=== PATIENT | female | born 1995 | race African-American/Black ===

== ENCOUNTER 2018-02-02 20:57 | Emergency (ER) | payer OTHER ==
[2018-02-02] MEDS ORDERED: IBUPROFEN 600 MG TABLET (FP) PO ONE ×2 (21:09→21:51)
[2018-02-02] MEDS ORDERED: ALBUTEROL SO4 2.5/IPRATROPIUM 0.5 INH SOL 3 ML VIAL.NEB. NEB ONE ×2 (21:10→21:51)
--- NOTE | 2018-02-02 21:13 | PDOC ---
Rapid Medical Evaluation Chief Complaint: Respiratory Time Seen by Provider: 02/02/18 21:06 Medical Evaluation: 02/02/18 21:07 22 year old female cough, chest pain and throat pain with fever x 2 days. PE: patient alert ox3, + moist cough. coarse breath sounds with occasional end expiratory wheeze A: cough, fever P: rapid strep urine chest pa and lateral fever control 02/02/18 21:13 02/02/18 21:13
[2018-02-02 21:22] VITALS: BMI 39.1
--- NOTE | 2018-02-02 21:50 | PDOC ---
History of Present Illness - General Chief Complaint: Cold Symptoms Stated Complaint: COUGHING/FEVER Time Seen by Provider: 02/02/18 21:06 - History of Present Illness Initial Comments: 22-year-old healthy female without any significant past medical history presents for evaluation of sore throat cough and fever 3 days. 02/02/18 21:48 Past History - Past Medical History Allergies/Adverse Reactions: Allergies Allergy/AdvReac Type Severity Reaction Status Date / Time No Known Allergies Allergy Verified 02/02/18 21:13 - Suicide/Smoking/Psychosocial Hx Smoking History: Never smoked Have you smoked in the past 12 months: No Information on smoking cessation initiated: No Hx Alcohol Use: No Drug/Substance Use Hx: No Review of Systems - Review of Systems Comments:: GENERAL/CONSTITUTIONAL: + fever or chills. No weakness. No weight change. HEAD, EYES, EARS, NOSE AND THROAT: No change in vision. No ear pain or discharge. + sore throat. CARDIOVASCULAR: No chest pain or shortness of breath. RESPIRATORY: + cough, wheezing, no hemoptysis. GASTROINTESTINAL: No nausea, vomiting, diarrhea or constipation. No rectal bleeding. GENITOURINARY: No dysuria, frequency, or change in urination. MUSCULOSKELETAL: No joint or muscle swelling or pain. No neck or back pain. SKIN AND BREASTS: No rash or easy bruising. NEUROLOGIC: No headache, vertigo, loss of consciousness, or loss of sensation. PSYCHIATRIC: No depression or anxiety. ENDOCRINE: No increased thirst. No abnormal weight change. HEMATOLOGIC/LYMPHATIC: No anemia, easy bleeding, or history of blood clots. ALLERGIC/IMMUNOLOGIC: No hives or skin allergy. No latex allergy. 02/02/18 21:48 *Physical Exam - Vital Signs Last Vital Signs Temp Pulse Resp BP Pulse Ox 101.7 F H 92 H 16 123/80 98 02/02/18 21:08 02/02/18 21:08 02/02/18 21:08 02/02/18 21:08 02/02/18 21:08 - Physical Exam Comments: GENERAL: The patient is awake, alert, and fully oriented, in no acute distress. HEAD: Normal with no signs of trauma. EYES: Pupils equal, round and reactive to light, extraocular movements intact, sclera anicteric, conjunctiva clear. ENT: Ears normal, nares patent, oropharynx clear with mild injection. Moist mucous membranes. NECK: Normal range of motion, supple without lymphadenopathy, JVD, or masses. LUNGS: R sided ronchi and expiratory wheezing HEART: Regular rate and rhythm, normal S1 and S2 without murmur, rub or gallop. ABDOMEN: Soft, nontender, normoactive bowel sounds. No guarding, no rebound. No masses. EXTREMITIES: Normal range of motion, no edema. No clubbing or cyanosis. No cords, erythema, or tenderness. NEUROLOGICAL: Cranial nerves II through XII grossly intact. Normal speech, normal gait. PSYCH: Normal mood, normal affect. SKIN: Warm, Dry, normal turgor, no rashes or lesions noted. 02/02/18 21:49
[2018-02-02] MEDS: ALBUTEROL SO4 2.5/IPRATROPIUM 0.5 INH SOL 3 ML VIAL.NEB. NEB SCH ×4 (21:54→22:53)
[2018-02-02] MEDS ORDERED: DEXAMETHASONE LIQUID 0.5 MG/5 ML 240 ML BULK BOTTLE PO ONE (22:44)
[2018-02-02] MEDS ORDERED: DEXAMETHASONE SOD PHOSPHATE 10 MG/1 ML VIAL ONE (22:47)
--- NOTE | 2018-02-02 23:05 | PDOC ---
*Physical Exam - Vital Signs Last Vital Signs Temp Pulse Resp BP Pulse Ox 101.7 F H 92 H 16 123/80 98 02/02/18 21:08 02/02/18 21:08 02/02/18 21:08 02/02/18 21:08 02/02/18 21:08 - Physical Exam General Appearance: Yes: Appropriately Dressed Respiratory/Chest: positive: Decreased Breath Sounds, Wheezing Cardiovascular: positive: Tachycardia Gastrointestinal/Abdominal: positive: Normal Bowel Sounds, Soft Extremity: positive: Normal Capillary Refill, Normal Inspection, Normal Range of Motion Integumentary: positive: Normal Color, Dry, Warm Neurologic: positive: Fully Oriented, Alert ED Treatment Course - ADDITIONAL ORDERS Additional order review: Laboratory Results 02/02/18 21:30 Urine HCG, Qual Negative 02/02/18 21:12 Group A Strep Rapid Antigen - Final Throat - RADIOLOGY Radiology Studies Ordered: Category Date Time Status CHEST PA & LAT [RAD] Stat Radiology 02/02/18 21:09 Taken - Medications Given in the ED: ED Medications Discontinued Medications Generic Name Dose Route Start Last Admin Trade Name Fransisca PRN Reason Stop Dose Admin Albuterol/Ipratropium 1 amp 02/02/18 22:00 02/02/18 22:53 Duoneb - NEB 02/02/18 22:46 Not Given Q15M CHIQUITA Dexamethasone 10 mg 02/02/18 22:44 02/02/18 22:51 Decadron Liquid - PO 02/02/18 22:45 10 mg ONCE ONE Administration Ibuprofen 600 mg 02/02/18 21:09 02/02/18 21:54 Motrin - PO 02/02/18 21:10 600 mg ONCE ONE Administration Medical Decision Making - Medical Decision Making 02/02/18 23:04 A: Bronchitis P: Azithromycin albuterol *DC/Admit/Observation/Transfer Diagnosis at time of Disposition: Bronchitis - Discharge Dispostion Disposition: HOME - Prescriptions Prescriptions: Albuterol Sulfate Inhaler - [Ventolin HFA Inhaler -] 1 - 2 inh IH Q4H #1 inhaler Azithromycin [Zithromax 250mg Tablets -] 250 mg PO UTDICT #6 tab - Referrals - Patient Instructions Printed Discharge Instructions: DI for Acute Bronchitis Additional Instructions: use albuterol inhaler every4 hours as needed for cough. take ibuprofen every 6 hours as needed for fever take azithromycin as prescribed follow up with your doctor as soon as possible. - Post Discharge Activity Forms/Work/School Notes: Back to Work
[2018-02-02] MEDS ORDERED: AZITHROMYCIN 250 MG TABLET PO ONE (23:39)
[2018-02-02] MEDS ORDERED: AZITHROMYCIN 250 MG TABLET ONE (23:42)
[2018-02-02 23:54] VITALS: BP 129/81; PULSE 119; TEMP 98.5
== END 2018-02-02 23:54 | disposition home or self-care (01) ==
LOC: JER 20:57
PROC: 3E0F7GC Introduction of Other Therapeutic Substance into Respiratory Tract, Via Natural or Artificial Opening (ICD-10-PCS; principal; 2018-02-02)
DX: J40 Bronchitis, not specified as acute or chronic (principal)
CPT/HCPCS: 71046-TC-FY; 84703; 87070; 87430; 99281-25; J7620